=== PATIENT | male | born 1990 | race Caucasian/White ===

== ENCOUNTER → 2017-01-21 | Outpatient (CLI) | payer OTHER | LOC: BMCIMAGING 13:07 | PROVIDERS: ATTEND Family Medicine | DX: S62.352A Nondisplaced fracture of shaft of third metacarpal bone, right hand, initial encounter for closed fracture (principal) ==

== ENCOUNTER 2018-12-04 12:54 | Emergency (ER) | payer OTHER ==
[2018-12-04 12:59] VITALS: BP 140/87
--- NOTE | 2018-12-04 13:25 | EDPHY ---
General Time Seen by Provider: 12/04/18 13:04 Narrative: CLINICAL IMPRESSION: External hemorrhoid, Rectal Pain ASSESSMENT/PLAN: 28 yo male presents to the ER for complaints of months of rectal pain associated with palpable external hemorrhoids. No associated abdominal pain, peroneal pain, scrotal or testicular swelling, dysuria, fever/chills. On exam patient has a small sub-centimeter, non-thrombosed external hemorrhoid. no palpable rectal mass, anal fissure, thrombosed hemorrhoid, or cellulitis/ secondary infection. Encouraged diet modification, avoidance of straining, surgery consultation, and prescription for proctofoam given. Warning signs for return to ED sooner outlined in d/c. DIFFERENTIAL DX: Ddx includes but not limited to external hemorrhoids, thrombosed hemorrhoid, rectal mass, anal fissure CHIEF COMPLAINT: Painful hemorrhoids HPI: 28-year-old male presents to the emergency department with complaints of rectal pain associated with external hemorrhoids. Patient reports having a hemorrhoidectomy at age 21 and was doing well for nearly 10 years. He has been trying to get in shape recently, has been lifting more weight, riding a bicycle , but admits he also struggles intermittently with constipation and straining. He is very worried that he has another thrombosed hemorrhoid. He does note rare intermittent bleeding only with passing stools. No genitourinary swelling , scrotal pain, testicular swelling, dysuria, abdominal pain, fever or chills. PAST MEDICAL HISTORY: Hemorrhoidectomy at age 21 See triage summary and nurse notes for addition applicable history REVIEW OF SYSTEMS: A full 10 point review of systems was negative except for those mentioned in HPI. PHYSICAL EXAM: General Appearance: Alert, oriented, appropriate, cooperative, NAD, well hydrated, non-toxic appearing, hypertensive, no hypoxia. Gastrointestinal: Abdomen is soft, nontender, bowel sounds normal, no masses/ hernia, no rigidity, guarding or focal peritoneal findings. Genitourinary: Exam performed with Destiny NUNEZ RN as batteryman. Patient has a external, small subcentimeter hemorrhoid. This is not thrombosed. No active bleeding. No palpable rectal fissure or internal mass. Skin: Warm, dry, no rashes, no nodules on palpation. MEDICAL DECISION MAKING: Patient was seen independently. Secondary supervising physician at time of evaluation was: Dr. Atkins. Diagnosis: External hemorrhoid. New, requires workup Summary: See Assessment and Plan for summary of ED visit Patient Progress: Stable for dc. - History Smoking Status: Current some day smoker - Objective Vital Signs: Initial Vital Signs Temperature (C) 36.7 C 12/04/18 12:56 Heart Rate 74 12/04/18 12:56 Respiratory Rate 18 12/04/18 12:56 Blood Pressure 140/87 H 12/04/18 12:56 O2 Sat (%) 95 12/04/18 12:56 O2 Delivery Mode Room Air Allergies/Adverse Reactions: No Known Allergies Allergy (Verified 12/04/18 13:00) Home Medications: Medication Instructions Recorded Flonase Allergy Relief 10/25/15 Albuterol 12/04/18 Hydrocortisone/Pramoxine 10 gm RC QID #1 foam 12/04/18 [Proctofoam-Hc Foam] Departure - Departure Disposition: Home, Routine, Self-Care Clinical Impression: External hemorrhoids Condition: Good Instructions: Hemorrhoids (ED) Additional Instructions: DISCHARGE INSTRUCTIONS FROM YOUR DOCTOR Thank you for visiting our emergency department today. You were treated by a physician occupational therapist assistants today and your case was reviewed with our ED Attending physician. Please keep in mind that discharge from the emergency department does not mean that there is nothing wrong - it simply means that we have not identified an emergency condition that requires further evaluation or treatment in the hospital. You should always plan to follow up with primary care for re- evaluation of your condition in the next 2-3 days. If you have been referred to a specialist, please call as soon as possible (today or tomorrow) to schedule your follow up appointment at the appropriate time. PLEASE CONTACT GENERAL SURGERY FOR EVALUATION AND RECOMMENDATIONS FOR HEMORRHOID CARE. A PRESCRIPTION WAS GIVEN TODAY TO HELP WITH PAIN. YOU MAY ALSO WANT TO CONSIDER USING TUCKS PADS, ALSO KNOWN WITCH CLIF PADS, CONTINUE SITZ BATHS, INCREASE FIBER AND WATER INTAKE TO AVOID CONSTIPATION. DO NOT STRAIN WITH STOOLING. RETURN TO THE EMERGENCY DEPARTMENT FOR WORSENING OR SEVERE PAIN, INCREASED IN SIZE TO THE HEMORRHOID, FEVER OR CHILLS, INABILITY TO HAVE BOWEL MOVEMENT, OR ANY OTHER CONCERN. People present with illnesses and injuries in different ways, and it is always possible that we have missed something. You may always return for re-evaluation if symptoms worsen or if they are not improving or if you develop new/different symptoms. Again, thank you for choosing our emergency department. We hope that you feel better. Referrals: NONE *PRIMARY CARE P,. [Primary Care Provider] - As per Instructions Feliciano Stephens MD [Medical Doctor] - 2-3 days without fail Prescriptions: Hydrocortisone/Pramoxine [Proctofoam-Hc Foam] 10 gm RC QID #1 foam
== END 2018-12-04 13:37 | disposition home or self-care (01) ==
DX: K64.4 Residual hemorrhoidal skin tags (principal)